=== PATIENT | female | born 1995 | race Asian ===

== ENCOUNTER 2023-01-21 16:11 | Emergency (ER) | payer BC ==
[2023-01-21 16:46] VITALS: BP 129/96; PULSE 96; RESP 18; TEMP 98.4; BMI 29.2
== END 2023-01-21 18:56 | disposition home or self-care (01) ==
LOC: JER 16:11 → JERFT 16:11
DX: R05.1 Acute cough (principal); M79.10 Myalgia, unspecified site; J00 Acute nasopharyngitis [common cold]; R09.82 Postnasal drip; Z20.822 Contact with and (suspected) exposure to COVID-19
CPT/HCPCS: 0241U-QW; 99283-25